=== PATIENT | male | born 1965 | race African-American/Black ===

== ENCOUNTER 2019-02-24 12:38 | Emergency (ER) | payer OTHER ==
[2019-02-24 12:53] VITALS: BP 186/116
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
== END 2019-02-24 15:03 | disposition home or self-care (01) ==
LOC: ED 12:38
DX: S16.1XXA Strain of muscle, fascia and tendon at neck level, initial encounter (principal); S50.01XA Contusion of right elbow, initial encounter; Z79.899 Other long term (current) drug therapy; V49.49XA Driver injured in collision with other motor vehicles in traffic accident, initial encounter; Y93.89 Activity, other specified; Y92.410 Unspecified street and highway as the place of occurrence of the external cause; Y99.8 Other external cause status
CPT/HCPCS: 72040